=== PATIENT | female | born 1990 | race Caucasian/White ===

== ENCOUNTER 2016-11-21 06:12 | Day surgery (SDC) | payer BC ==
--- NOTE | ~2016-11-21 | EGD ---
EGD REPORT [facility] [address] [address] NAME: JODI WAGNER : [birth year] STATUS : REG [facility]#: [id number] AGE: 26 ADM/REG DATE : 11/21/16 MR#: [id number] REPORT SERV DATE: 11/21/16 DICTATED BY: JEWEL REDDY DATE: 11/21/16 REPORT STATUS : Draft TRANSCRIBED BY: [facility] DATE: 11/21/16 Endoscopy Center Patient Name: Jodi Wagner Date of : 1990 Attending MD: JEWEL REDDY, Procedure Date No Time: 11/21/2016 Procedure: Upper GI endoscopy Indications: Epigastric abdominal pain Referring MD: PARAMJIT GOLDMAN MD Medicines: Monitored Anesthesia Care Complications: No immediate complications. Estimated blood loss: None. Procedure: Pre-Anesthesia Assessment: - ASA Grade Assessment: II - A patient with mild systemic disease. After obtaining informed consent, the endoscope was passed under direct vision. Throughout the procedure, the patient's blood pressure, pulse, and oxygen saturations were monitored continuously. The GIF [id number] was introduced through the mouth, and advanced to the second part of duodenum. The upper GI endoscopy was accomplished without difficulty. The patient tolerated the procedure well. Findings: The esophagus was normal. Patchy mild inflammation characterized by erythema was found in the entire examined stomach. Biopsies were taken with a cold forceps for histology. Verification of patient identification for the specimen was done. Estimated blood loss was minimal. The examined duodenum was normal. Multiple biopsies were obtained in the 2nd part of the duodenum with cold forceps for histology. Impression: - Normal esophagus. - Gastritis. Biopsied. - Normal examined duodenum. - Multiple biopsies were obtained in the 2nd part of the duodenum. Recommendation: - Patient has a contact number available for emergencies. The signs and symptoms of potential delayed complications were discussed with the patient. Return to normal activities tomorrow. Written discharge instructions were provided to the patient. - Return to previous diet. - Continue present medications. EGD REPORT [facility] [address] [place], [place] [address]. [address] NAME: JODI WAGNER : [birth year] STATUS : REG [facility] [place] PAT#: [id number] AGE: 26 ADM/REG DATE : 11/21/16 MR#: [id number] REPORT SERV DATE: 11/21/16 DICTATED BY: JEWEL REDDY DATE: 11/21/16 REPORT STATUS : Draft TRANSCRIBED BY: BRAIN DATE: 11/21/16 - Await pathology results. Procedure Code(s): --- Professional --- 90388, Esophagogastroduodenoscopy, flexible, transoral; with biopsy, single or multiple Diagnosis Code(s): --- Professional --- K29.70, Gastritis, unspecified, without bleeding R10.13, Epigastric pain CPT copyright 2013 [employer]. All rights reserved. The codes documented in this report are preliminary and upon bartacker review may be revised to meet current compliance requirements. JEWEL REDDY, 11/21/2016 7:17 AM Number of Addenda: 0 Note Initiated On: 11/21/2016 7:02 AM Scope Withdrawal Time 0 hours 0 minutes 0 seconds [address] [facility] [place] [address]
[~2016-11-21 06:12] MED LIST: CARASPUDL PO; PROAIR HFA INH
== END 2016-11-21 23:59 | disposition home or self-care (01) ==
LOC: DMU 06:12
PROVIDERS: Internal Medicine Gastroenterology
PROC: 0DB98ZX Excision of Duodenum, Via Natural or Artificial Opening Endoscopic, Diagnostic (ICD-10-PCS; 2016-11-21)
PROC: 0DB68ZX Excision of Stomach, Via Natural or Artificial Opening Endoscopic, Diagnostic (ICD-10-PCS; principal; 2016-11-21 07:00)
DX: K29.70 Gastritis, unspecified, without bleeding (principal); J45.909 Unspecified asthma, uncomplicated; Z91.018 Allergy to other foods; Z79.899 Other long term (current) drug therapy
CPT/HCPCS: 84703; 88305